=== PATIENT | male | born 2000 | race Caucasian/White ===

== ENCOUNTER 2019-10-25 11:17 | Emergency (ER) | payer OTHER ==
[~2019-10-25] VITALS: Ht 165.1 cm; Wt 52.2 kg
[2019-10-25 12:25] VITALS: BP 107/77
== END 2019-10-25 12:25 | disposition home or self-care (01) ==
LOC: M.ERS 11:17
DX: S61.217A Laceration without foreign body of left little finger without damage to nail, initial encounter (principal); W26.0XXA Contact with knife, initial encounter; Y93.89 Activity, other specified; Y92.89 Other specified places as the place of occurrence of the external cause; Y99.8 Other external cause status